=== PATIENT | female | born 1965 | race Caucasian/White ===

== ENCOUNTER 2017-12-13 10:01 | Emergency (ER) | payer OTHER ==
[~2017-12-13] VITALS: Ht 160 cm; Wt 70.0 kg
[~2017-12-13 10:01] MED LIST: Z.0.NO CURRENT MEDS
[2017-12-13 10:05] VITALS: BP 138/84; PULSE 96; RESP 20; TEMP 99; O2SAT 99
[2017-12-13 10:49] LABS: BILIRUBIN, URINE NEG (NEG); BLOOD, URINE NEG (NEG); GLUCOSE,URINE NEG (NEG); KETONE, URINE NEG (NEG); NITRITE,URINE NEG (NEG); URINE LEUKOCYTE ESTERASE NEG (NEG)
[2017-12-13 10:52] LABS: URINE COLOR STRAW (YELLW/STRAW)
[2017-12-13 10:53] LABS: BACTERIA, URINE OCC /hpf; RBC, URINE 0-2 /hpf (0-3); WBC, URINE 0-2 /hpf (0-5)
[2017-12-13] MEDS ORDERED: SODIUM CHLORIDE 0.9% FLUSH 10 ML FLUSH IV FLUSH PRN (12:15)
[2017-12-13] MEDS ORDERED: KETOROLAC TROMETHAMINE 30 MG/ML (IVP) VIAL IVP ONE (12:15)
[2017-12-13] MEDS ORDERED: DICYCLOMINE HCL 10 MG CAP PO ONE (12:15)
[2017-12-13 12:23] VITALS: RESP 16; O2SAT 99
[2017-12-13 12:44] LABS: AUTOMATED NEUTROPHIL # 11.1 TH/MM3 (1.8-7.7); BASOPHIL % 0.1 % (0.0-2.0); EOSINOPHIL # 0.1 TH/MM3 (0-0.4); EOSINOPHIL % 0.7 % (0.0-4.0); HEMATOCRIT 38.4 % (35.0-46.0); HEMOGLOBIN 12.9 GM/DL (11.6-15.3); LYMPH % 16.9 % (9.0-44.0); LYMPHOCYTE # 2.5 TH/MM3 (1.0-4.8); MEAN CELL VOLUME 84.1 FL (80.0-100.0); MEAN CORPUSCULAR HEMOGLOBIN 28.2 PG (27.0-34.0); MEAN CORPUSCULAR HGB CONC 33.5 % (32.0-36.0); MEAN PLATELET VOLUME 8.1 FL (7.0-11.0); MONO % 6.2 % (0.0-8.0); MONOCYTE # 0.9 TH/MM3 (0-0.9); NEUT % 76.1 % (16.0-70.0); PLATELET COUNT 386 TH/MM3 (150-450); RED BLOOD COUNT 4.56 MIL/MM3 (4.00-5.30); RED CELL DISTRIBUTION WIDTH 13.3 % (11.6-17.2); WHITE BLOOD COUNT 14.6 TH/MM3 (4.0-11.0)
--- NOTE | 2017-12-13 12:51 | RADRPT ---
EXAM DATE/TIME: 12/13/2017 12:21 [facility] COMPARISON: No previous studies available for comparison. INDICATIONS : Pelvic pain. MEDICAL HISTORY : Pelvic pain. SURGICAL HISTORY : Tubal ligation. Appendectomy. D&C. ENCOUNTER: Initial ACUITY: 4-6 days PAIN SCORE: 1/10 LOCATION: Bilateral pelvis MEASUREMENTS: UTERUS: 7.9 x 4.4 x 2.9 cm ENDOMETRIAL STRIPE: 10 mm RIGHT OVARY: Non visualized LEFT OVARY: Non visualized FINDINGS: UTERUS: Myometrium is heterogeneous with at least 2 punctate calcifications. There is a hypoechoic area at th e fundus which may represent a fibroid and measures 1.6 cm. Endometrium is not well-visualized but ap pears to measure 10 mm in maximal thickness. RIGHT OVARY: Not visualized. No adnexal mass is seen. LEFT OVARY: Not visualized. No adnexal mass is seen. MISCELLANEOUS: There is trace free fluid in the pelvis. CONCLUSION: 1. No abnormality is identified to explain the clinical symptoms. There is trace free fluid in the pe lvis. 2. Possible fibroid in the fundus measuring 16 mm. 3. Endometrium is not well-visualized but appears to measure up to 10 mm in maximal thickness. Since the patient is postmenopausal, recommend correlation for any postmenopausal bleeding since this may b e abnormal. Ronaldo Perez MD on December 13, 2017 at 12:45 Board Certified Radiologist. This report was verified electronically.
[2017-12-13 12:59] LABS: CHLORIDE 103 MEQ/L (98-107); SODIUM (NA) 138 MEQ/L (136-145)
[2017-12-13 13:02] LABS: CALCIUM 8.8 MG/DL (8.5-10.1)
[2017-12-13 13:03] LABS: ALBUMIN 3.4 GM/DL (3.4-5.0); BICARBONATE 27.6 MEQ/L (21.0-32.0); BLOOD UREA NITROGEN 10 MG/DL (7-18); GLUCOSE,RANDOM 87 MG/DL (74-106); PROTHROMBIN TIME - PATIENT 10.5 SEC (9.8-11.6)
[2017-12-13 13:06] LABS: ALT (GPT) 34 U/L (10-53); AST (GOT) 22 U/L (15-37); CREATININE 0.68 MG/DL (0.50-1.00); GLOMERULAR FILTRATION RATE 90 ML/MIN (>89)
[2017-12-13 13:08] LABS: TOTAL BILIRUBIN ADULT 0.5 MG/DL (0.2-1.0)
--- NOTE | 2017-12-13 13:08 | PD ---
HPI Chief Complaint: Abdominal Pain Time Seen by Provider: 11:42 Travel History International Travel<30 days: No Contact w/Intl Traveler<30days: No Traveled to known affect area: No History of Present Illness HPI Patient is a 52 year old female who comes in complaining of lower abdominal pain. She says she has been having these episodes of pain coming and going for the past 8-9 days. She says the pain is in her lower abdomen. She denies nausea or vomiting. She says she takes Ibuprofen for the pain and this helps. She denies any vaginal bleeding or discharge. She says she came in today because the pain seemed a little worse and it is "lingering." She says he bowel habits have not been "normal," but cannot describe why it is not normal. [facility] Past Medical History Medical History: Denies Significant Hx Diminished Hearing: No ?: Not Menopausal: Yes Dilation and Curettage (D&C): Yes Past Surgical History Appendectomy: Yes Other Surgery: Yes (BREAST AUGMENTATION) Social History Alcohol Use: Yes (OCC) Tobacco Use: No Substance Use: No Allergies-Medications (Allergen,Severity, Reaction): Coded Allergies: codeine (Unverified Allergy, Unknown, HALLUCINATIONS, 12/13/17) Reported Meds & Prescriptions Reported Meds & Active Scripts Active No Active Prescriptions or Reported Medications Review of Systems Except as stated in HPI: all other systems reviewed are Neg General / Constitutional: No: Fever, Chills HENT: No: Headaches, Lightheadedness Cardiovascular: No: Chest Pain or Discomfort Respiratory: No: Shortness of Breath Gastrointestinal: Positive: Abdominal Pain, No: Nausea, Vomiting Genitourinary: No: Dysuria, Discharge Musculoskeletal: No: Myalgias, Weakness Skin: No Rash, No Change in Pigmentation Neurologic: No: Weakness, Dizziness Physical Exam Narrative GENERAL: Awake and alert, in no acute distress. SKIN: Focused skin assessment warm/dry. HEAD: Atraumatic. Normocephalic. EYES: Pupils equal and round. No scleral icterus. ENT: Mucous membranes pink and moist. NECK: Trachea midline. No JVD. CARDIOVASCULAR: Regular rate and rhythm. No murmur appreciated. RESPIRATORY: No accessory muscle use. Clear to auscultation. Breath sounds equal bilaterally. GASTROINTESTINAL: Abdomen soft, non-tender, nondistended. No CVA tenderness. MUSCULOSKELETAL: No obvious deformities. No clubbing. No cyanosis. No edema. NEUROLOGICAL: Awake and alert. No obvious cranial nerve deficits. Motor grossly within normal limits. Normal speech. PSYCHIATRIC: Appropriate mood and affect; insight and judgment normal. Data Data Last Documented VS Vital Signs Date Time Temp Pulse Resp B/P (MAP) Pulse Ox O2 Delivery O2 Flow Rate FiO2 12/13/17 12:23 16 99 Room Air 12/13/17 10:05 99.0 96 138/84 (102) Orders Orders Urinalysis - C+S If Indicated (12/13/17 10:22) Complete Blood Count With Diff (12/13/17 12:10) Comprehensive Metabolic Panel (12/13/17 12:10) Prothrombin Time / Inr (Pt) (12/13/17 12:10) Act Partial Throm Time (Ptt) (12/13/17 12:10) Ct Abd/Pel W Iv Contrast(Rout) (12/13/17 12:10) Iv Access Insert/Monitor (12/13/17 12:10) Ecg Monitoring (12/13/17 12:10) Oximetry (12/13/17 12:10) Sodium Chloride 0.9% Flush (Ns Flush) (12/13/17 12:15) Dicyclomine (Bentyl) (12/13/17 12:15) Ketorolac Inj (Toradol Inj) (12/13/17 12:15) Us Pelvis Comp W Transvaginal (12/13/17 ) Iohexol 350 Inj (Omnipaque 350 Inj) (12/13/17 13:23) Labs Laboratory Tests Test 12/13/17 10:41 12/13/17 12:20 Urine Color STRAW Urine Turbidity CLEAR Urine pH 6.0 Urine Specific [place] 1.004 Urine Protein NEG mg/dL Urine Glucose (UA) NEG mg/dL Urine Ketones NEG mg/dL Urine Occult Blood NEG Urine Nitrite NEG Urine Bilirubin NEG Urine Leukocyte Esterase NEG Urine RBC 0-2 /hpf Urine WBC 0-2 /hpf Urine Squamous Epithelial Cells 6-8 /hpf Urine Bacteria OCC /hpf Microscopic Urinalysis Comment CULT NOT INDICATED White Blood Count 14.6 TH/MM3 Red Blood Count 4.56 MIL/MM3 Hemoglobin 12.9 GM/DL Hematocrit 38.4 % Mean Corpuscular Volume 84.1 FL Mean Corpuscular Hemoglobin 28.2 PG Mean Corpuscular Hemoglobin Concent 33.5 % Red Cell Distribution Width 13.3 % Platelet Count 386 TH/MM3 Mean Platelet Volume 8.1 FL Neutrophils (%) (Auto) 76.1 % Lymphocytes (%) (Auto) 16.9 % Monocytes (%) (Auto) 6.2 % Eosinophils (%) (Auto) 0.7 % Basophils (%) (Auto) 0.1 % Neutrophils # (Auto) 11.1 TH/MM3 Lymphocytes # (Auto) 2.5 TH/MM3 Monocytes # (Auto) 0.9 TH/MM3 Eosinophils # (Auto) 0.1 TH/MM3 Basophils # (Auto) 0.0 TH/MM3 CBC Comment DIFF FINAL Differential Comment Prothrombin Time 10.5 SEC Prothromb Time International Ratio 1.0 RATIO Activated Partial Thromboplast Time 29.6 SEC Blood Urea Nitrogen 10 MG/DL Creatinine 0.68 MG/DL Random Glucose 87 MG/DL Total Protein 8.0 GM/DL Albumin 3.4 GM/DL Calcium Level 8.8 MG/DL Alkaline Phosphatase 176 U/L Aspartate Amino Transf (AST/SGOT) 22 U/L Alanine Aminotransferase (ALT/SGPT) 34 U/L Total Bilirubin 0.5 MG/DL Sodium Level 138 MEQ/L Potassium Level 4.0 MEQ/L Chloride Level 103 MEQ/L Carbon Dioxide Level 27.6 MEQ/L Anion Gap 7 MEQ/L Estimat Glomerular Filtration Rate 90 ML/MIN MDM Medical Decision Making Medical Screen Exam Complete: Yes Emergency Medical Condition: Yes Medical Record Reviewed: Yes Differential Diagnosis Colitis vs diverticulitis vs ovarian cyst vs fibroid Narrative Course Patient is a 52-year-old female who comes in complaining of lower abdominal pain. Exam shows no acute abnormalities. IV established, labs sent. Labs show no elevated white blood cell count of 14.6, no other acute abnormalities. Ultrasound of the pelvis performed shows thickening of the uterus, and possible fibroid. CT abdomen and pelvis performed shows thickening of the colon, colitis versus diverticulitis. Last 24 hours Impressions Abdomen/Pelvis CT 12/13/17 1210 Signed Impressions: Service Date/Time: Wednesday, December 13, 2017 13:13 - CONCLUSION: Long segment 9-10 cm of the mid to distal sigmoid colon with circumferential bowel wall thickening and mild pericolonic inflammatory change in the fat. Most consistent with colitis consideration of diverticular disease. Degenerative changes of lumbar spine facet arthritic changes with grade one approaching grade 2 spondylolisthesis of L4 on L5. Christiano Mclaughlin MD Pelvis Ultrasound 12/13/17 0000 Signed Impressions: Service Date/Time: Wednesday, December 13, 2017 12:21 - CONCLUSION: 1. No abnormality is identified to explain the clinical symptoms. There is trace free fluid in the pelvis. 2. Possible fibroid in the fundus measuring 16 mm. 3. Endometrium is not well-visualized but appears to measure up to 10 mm in maximal thickness. Since the patient is postmenopausal, recommend correlation for any postmenopausal bleeding since this may be abnormal. Ronaldo Perez MD Patient informed of these results. 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 She is not experiencing any bleeding at this time. Advised she needs to investigate this further, to make sure it is not cancerous. She'll be discharged with prescriptions for antibiotics. Advised to return any time for any worsening symptoms. Advised to avoid alcohol while taking these antibiotics as she will become very ill. Diagnosis Primary Impression: Colitis Patient Instructions: Colitis (ED), General Instructions Additional Instructions: Take all of your antibiotics. Do not drink alcohol while on these antibiotics as she will be very ill. Follow-up with gynecology regarding the thickening of your uterus seen on ultrasound. This should be investigated further to make sure there is no cancer of your uterus. Return any time for any worsening symptoms. Scripts Ciprofloxacin (Cipro) 500 Mg Tab 500 MG PO BID for Infection for 7 Days, #14 TAB 0 Refills Prov: Dorie Carvajal MD 12/13/17 Metronidazole (Flagyl) 500 Mg Tab 500 MG PO TID for Infection for 7 Days, TAB 0 Refills Prov: Dorie Carvajal MD 12/13/17 Disposition: 01 DISCHARGE HOME Condition: Stable Dorie Carvajal MD Dec 13, 2017 13:08
[2017-12-13 13:09] LABS: ALKALINE PHOSPHATASE 176 U/L (45-117)
[2017-12-13] MEDS ORDERED: IOHEXOL 350 MG/ML 10 ML VIAL (for RAD DIAG) IVCONTRAST ONE (13:23)
--- NOTE | 2017-12-13 13:42 | RADRPT ---
EXAM DATE/TIME: 12/13/2017 13:13 [facility] COMPARISON: No previous studies available for comparison. INDICATIONS : Lower abdominal pain. IV CONTRAST: 90 cc Omnipaque 350 (iohexol) IV ORAL CONTRAST: No oral contrast ingested. RADIATION DOSE: 10.15 CTDIvol (mGy) MEDICAL HISTORY : None SURGICAL HISTORY : Appendectomy. ENCOUNTER: Initial ACUITY: 2 days PAIN SCALE: 5/10 LOCATION: lower quadrant TECHNIQUE: Volumetric scanning of the abdomen and pelvis was performed. Using automated exposure control and ad justment of the mA and/or kV according to patient size, radiation dose was kept as low as reasonably achievable to obtain optimal diagnostic quality images. DICOM format image data is available electro nically for review and comparison. FINDINGS: LOWER LUNGS: The visualized lower lungs are clear. LIVER: Homogeneous density without lesion. There is no dilation of the biliary tree. No calcified gallston es. Gallbladder seen is a little structure without wall thickening or stones. SPLEEN: Normal size without lesion. PANCREAS: Within normal limits. KIDNEYS: Normal in size and shape. There is no mass, stone or hydronephrosis. ADRENAL GLANDS: Within normal limits. VASCULAR: There is no aortic aneurysm. BOWEL/MESENTERY: There is a 9-10 cm length of mid to distal sigmoid colon which is inflamed circumferentially with bow el wall thickening and some mild inflammatory changes in the pericolonic fat.. ABDOMINAL WALL: Within normal limits. RETROPERITONEUM: There is no lymphadenopathy. BLADDER: No wall thickening or mass. REPRODUCTIVE: Within normal limits. Prominent varices bilaterally in the pelvis. INGUINAL: There is no lymphadenopathy or hernia. MUSCULOSKELETAL: Facet arthritic changes in the lower lumbar spine with a grade one approaching grade 2 spondylolisthe sis of L4 on L5 and degenerative disc disease at this level. CONCLUSION: Long segment 9-10 cm of the mid to distal sigmoid colon with circumferential bowel wall thickening an d mild pericolonic inflammatory change in the fat. Most consistent with colitis consideration of dive rticular disease. Degenerative changes of lumbar spine facet arthritic changes with grade one approaching grade 2 spondylolisthesis of L4 on L5. Christiano Mclaughlin MD on December 13, 2017 at 13:33 Board Certified Radiologist. This report was verified electronically.
[2017-12-13 13:54] VITALS: BP 118/72
[2017-12-13] MEDS ORDERED: METR-1 PO (13:56)
[2017-12-13] MEDS ORDERED: CIPR-9 PO (13:56)
== END 2017-12-13 14:01 | disposition home or self-care (01) ==
LOC: PHED 10:01
DX: K52.9 Noninfective gastroenteritis and colitis, unspecified (principal); M43.16 Spondylolisthesis, lumbar region; Z88.5 Allergy status to narcotic agent
CPT/HCPCS: 74177; 76830; 76856; 80053; 81001; 85025; 85610; 85730; 96374; 99285; J1885; Q9967